=== PATIENT | female | born 1995 | race African-American/Black ===

== ENCOUNTER 2019-05-01 19:39 | Emergency (ER) | payer OTHER ==
[2019-05-01 19:45] VITALS: BP 133/87; PULSE 92; TEMP 98.2; BMI 24.6
--- NOTE | 2019-05-01 20:29 | PDOC ---
History of Present Illness - General Chief Complaint: Wound Stated Complaint: LUMP IN LEFT BREST Time Seen by Provider: 05/01/19 20:18 History Source: Patient Exam Limitations: Clinical Condition - History of Present Illness Initial Comments: 05/01/19 20:37 Patient with no significant past medical history present with complaint of 2 day history of lump and redness around nipple of left breast or nipple piercing. Patient reported taking now nipple piercing by have a lump in left breast which is painful. Denies fever, chills. Denies discharge from breast. Denies any other symptoms Timing/Duration: other (3days) Past History - Past Medical History Allergies/Adverse Reactions: Allergies Allergy/AdvReac Type Severity Reaction Status Date / Time No Known Drug Allergies Allergy Unknown Verified 07/21/14 17:47 pistachio nuts AdvReac Severe Difficulty Uncoded 07/21/14 17:47 Breathing Home Medications: Ambulatory Orders Vitamins ([facility]) - 1 tab PO DAILY 07/19/14 Amoxicillin/Potassium Clav [Augmentin 875-125 Tablet] 1 each PO 14 #7 tablet Ibuprofen 800 mg PO Q8H PRN #20 tablet 05/01/19 Asthma: No Cancer: No Cardiac Disorders: No Diabetes: No HTN: No Seizures: No Thyroid Disease: No - Suicide/Smoking/Psychosocial Hx Smoking History: Unknown if ever smoked Have you smoked in the past 12 months: No Hx Alcohol Use: No Drug/Substance Use Hx: No Hx Substance Use Treatment: No Review of Systems - Review of Systems Able to Perform ROS?: Yes Is the patient limited Greek proficient: No Constitutional: No: Chills, Fever, Malaise, Weakness HEENTM: No: Symptoms Reported Respiratory: No: Symptoms reported ABD/GI: No: Symptoms Reported Musculoskeletal: Yes: Symptoms Reported, See HPI, Muscle Pain (left breast) Integumentary: Yes: Symptoms Reported, See HPI, Erythema (left nipple), Lumps ( left breast) All Other Systems: Reviewed and Negative *Physical Exam - Vital Signs Last Vital Signs Temp Pulse Resp BP Pulse Ox 98.2 F 92 H 20 133/87 98 05/01/19 19:41 05/01/19 19:41 05/01/19 19:41 05/01/19 19:41 05/01/19 19:41 - Physical Exam General Appearance: Yes: Nourished, Appropriately Dressed, Apparent Distress HEENT: positive: Normal ENT Inspection Neck: positive: Supple Respiratory/Chest: positive: Lungs Clear, Normal Breath Sounds. negative: Respiratory Distress, Accessory Muscle Use Cardiovascular: positive: Regular Rhythm, Regular Rate Musculoskeletal: positive: Normal Inspection, Other (mild tenderness to periareola area) Extremity: positive: Normal Inspection Integumentary: positive: Normal Color, Erythema (mild erythema to left nipple), Swelling (mild swelling with 2cm hard induration to periareola at 4" o clock. no discharge from site) Neurologic: positive: Fully Oriented, Alert, Normal Response Medical Decision Making - Medical Decision Making 05/01/19 20:38 Patient with no significant past medical history present with complaint of 2 day history of lump and redness around nipple of left breast of nipple piercing. Patient reported taking now nipple piercing by have a lump in left breast which is painful. Denies fever, chills. Denies discharge from breast. Denies any other symptoms Exam significant for mild swelling with hard induration to periareolar of left breast mild skin erythema to nipple of breast. No discharge from breast. Patient is stable for discharge on Augmentin antibiotics for a week and Motrin for pain and swelling with advised to do hot compresses and [facility] [employer] [facility] follow-up. *DC/Admit/Observation/Transfer Diagnosis at time of Disposition: Mastitis of left breast unrelated to or - Discharge Dispostion Disposition: HOME Condition at time of disposition: Stable Decision to Admit order: No - Prescriptions Prescriptions: Amoxicillin/Potassium Clav [Augmentin 875-125 Tablet] 1 each PO 14 #7 tablet Ibuprofen 800 mg PO Q8H PRN #20 tablet PRN Reason: pain - Referrals Referrals: Janel Briseno MD [Staff Physician] - - Patient Instructions Printed Discharge Instructions: DI for Mastitis Additional Instructions: Take medications as prescribed. Apply hot compresses to breast 2-3 times a day for 5 minutes as needed for swelling. Follow-up referred [facility] [employer] [facility] in 2-3 days for reassessment - Post Discharge Activity
== END 2019-05-01 20:32 | disposition home or self-care (01) ==
LOC: JERFT 19:39 → JER 19:39 → JERFT 20:32
DX: N61.0 Mastitis without abscess (principal)
CPT/HCPCS: 99281-25